=== PATIENT | male | born 1945 | race Caucasian/White ===

== ENCOUNTER 2022-01-08 11:48 | Inpatient (IN) | payer MEDICARE ==
[~2022-01-08] VITALS: Ht 165.1 cm; Wt 77.6 kg
[2022-01-08] MEDS ORDERED: ACETAZOLAMIDE SODIUM 500MG/VIAL IV SCH (12:15)
[2022-01-08] MEDS ORDERED: HYDROCODONE/ACETAMINOPHEN 5/325MG TABLET PO PRN ×2 (12:15→21:00)
[2022-01-08] MEDS ORDERED: CEFAZOLIN 1000MG PREMIX 50 ML IV ONE (12:15)
[2022-01-08 12:46] LABS: BASOPHILS % 0.7 % (0.0-2.0); EOSINOPHILS % 11.1 % (0.0-5.0); HEMATOCRIT. 44.5 % (42.0-52.0); HEMOGLOBIN. 14.8 g/dL (14.0-18.0); LYMPHOCYTES % 16.1 % (20.0-50.0); MEAN CORPUSCULAR HEMOGLOBIN 31.7 pg (28.0-32.0); MEAN CORPUSCULAR VOLUME 95.2 fL (80.0-94.0); MEAN PLATELET VOLUME 8.3 fl (7.4-10.4); MONOCYTES % 6.8 % (2.0-8.0); NEUTROPHILS % 65.3 % (40.0-76.0); PLATELET 198 x1000/uL (130-400); RED BLOOD CELL COUNT 4.67 mill/uL (4.7-6.1); RED CELL DISTRIBUTION WIDTH 13.5 % (11.6-14.6)
[2022-01-08 12:53] LABS: CHLORIDE 110 mEq/L (98-107)
[2022-01-08 12:55] LABS: INR 1.1; PROTHROMBIN TIME 11.6 sec (9.6-11.0)
[2022-01-08 20:00] VITALS: BP 137/78
[2022-01-08 20:30] VITALS: BP 137/78
[2022-01-08] MEDS ORDERED: CEFAZOLIN 1000MG PREMIX 50 ML IV SCH (21:00)
[2022-01-08] MEDS ORDERED: DORZOLAM/TIMOLOL 2.23/0.68% OPHTH DROPS 10ML BOTHEYE SCH (21:00)
[2022-01-08] MEDS ORDERED: LATANOPROST 0.005% OPHTH DROPS 2.5ML BOTHEYE SCH (21:00)
[2022-01-08] MEDS ORDERED: TIMOLOL MALEATE 0.25% OPHTH DROPS 5ML EACHEYE SCH (21:00)
[2022-01-08] MEDS ORDERED: ACETAZOLAMIDE SODIUM 500MG/VIAL IV NR (21:00)
[2022-01-08] MEDS: DORZOLAM/TIMOLOL 2.23/0.68% OPHTH DROPS 10ML RIGHTEYE SCH (22:05)
[2022-01-08] MEDS: PREDNISOLONE ACETATE 1% OPHTH DROPS 5ML RIGHTEYE SCH (23:58)
[2022-01-09] VITALS: BP 130/76
[2022-01-09] MEDS ORDERED: ACETAMINOPHEN 325MG TABLET PO PRN ×2 (01:15)
[2022-01-09] MEDS ORDERED: ONDANSETRON HCL 4MG/2ML INJ IV PRN (01:15)
[2022-01-09] MEDS ORDERED: IPRATROPIUM/ALBUTEROL 0.5-3(2.5)MG/3ML NEB HHN PRN (01:15)
[2022-01-09] MEDS ORDERED: LORAZEPAM 0.5MG TABLET PO PRN (01:15)
[2022-01-09] MEDS ORDERED: HYDROCODONE/ACETAMINOPHEN 5/325MG TABLET PO PRN (01:15)
[2022-01-09] MEDS ORDERED: DOCUSATE SODIUM 100MG CAPSULE PO PRN (01:15)
[2022-01-09] MEDS ORDERED: CLONIDINE 0.1MG TABLET PO PRN (01:15)
[2022-01-09] MEDS ORDERED: NALOXONE HCL 0.4MG/ML VIAL IV PRN (01:30)
[2022-01-09] MEDS: SODIUM CHLORIDE 0.9% 1,000 ML IV SCH ×2 (03:31→13:35)
[2022-01-09 04:00] VITALS: BP_SYST 115; BP_SYST 153; BP_DIAS 69; BP_DIAS 86
[2022-01-09] MEDS: PREDNISOLONE ACETATE 1% OPHTH DROPS 5ML RIGHTEYE SCH (06:44)
[2022-01-09 08:00] VITALS: BP 137/74
[2022-01-09] MEDS ORDERED: LIDOCAINE HCL 1% 50ML VIAL (10MG/ML) ONE (08:02)
[2022-01-09] MEDS ORDERED: PROPOFOL 200MG/20ML VIAL IV ONE (08:02)
[2022-01-09] MEDS ORDERED: ONDANSETRON HCL 4MG/2ML INJ ONE (08:02)
[2022-01-09] MEDS ORDERED: DEXAMETHASONE 4MG/ML 1ML VIAL ONE (08:41)
[2022-01-09] MEDS ORDERED: BALANCED SALT IRRIG SOLN 15ML ONE (08:45)
[2022-01-09] MEDS ORDERED: GENTAMICIN SULF 40MG/ML 2ML VIAL ONE (08:45)
[2022-01-09] MEDS ORDERED: LIDOCAINE HCL/PF 2% 20 MG/ML 10ML VIAL ONE (08:45)
[2022-01-09] MEDS ORDERED: PREDNISOLONE ACETATE 1% OPHTH DROPS 5ML ONE (08:45)
[2022-01-09] MEDS ORDERED: CIPROFLOXACIN 0.3% OPHTH SOLN 2.5ML ONE (08:45)
[2022-01-09] MEDS ORDERED: NEO/POLYMYX B SULF/DEXAMETH OPHTH OINT 3.5GM ONE (08:45)
[2022-01-09] MEDS ORDERED: BUPIVACAINE HCL/PF 0.75% (7.5MG/ML) 10ML ONE (08:45)
[2022-01-09] MEDS ORDERED: HYALURONATE SODIUM 10 MG/ML 0.55ML SYRINGE IO ONE (08:55)
[2022-01-09] MEDS: DORZOLAM/TIMOLOL 2.23/0.68% OPHTH DROPS 10ML RIGHTEYE SCH (09:00)
[2022-01-09] MEDS: CEFAZOLIN 1000MG PREMIX 50 ML IV SCH (09:00)
[2022-01-09] MEDS: THIAMINE HCL 100MG TABLET PO SCH (09:00)
[2022-01-09] MEDS ORDERED: ATROPINE SULFATE 0.4MG/ML VIAL IV PRN (09:15)
[2022-01-09] MEDS ORDERED: FENTANYL CITRATE/PF 50MCG/ML 2ML VIAL IV PRN (09:15)
[2022-01-09 12:00] VITALS: BP 147/87
[2022-01-09 16:00] VITALS: BP 123/70
[2022-01-09 20:00] VITALS: BP 113/59
[2022-01-10] VITALS: BP 111/58
[2022-01-10] MEDS: SODIUM CHLORIDE 0.9% 1,000 ML IV SCH (01:49)
[2022-01-10 04:00] VITALS: BP 102/70
[2022-01-10 08:00] VITALS: BP 113/60
[2022-01-10 08:40] LABS: BASOPHILS % 0.4 % (0.0-2.0); EOSINOPHILS % 8.1 % (0.0-5.0); HEMATOCRIT. 38.5 % (42.0-52.0); HEMOGLOBIN. 12.7 g/dL (14.0-18.0); LYMPHOCYTES % 20.7 % (20.0-50.0); MEAN CORPUSCULAR HEMOGLOBIN 31.5 pg (28.0-32.0); MEAN CORPUSCULAR VOLUME 95.1 fL (80.0-94.0); MONOCYTES % 7.3 % (2.0-8.0); NEUTROPHILS % 63.5 % (40.0-76.0); PLATELET 155 x1000/uL (130-400); RED BLOOD CELL COUNT 4.05 mill/uL (4.7-6.1); RED CELL DISTRIBUTION WIDTH 13.6 % (11.6-14.6)
[2022-01-10] MEDS: THIAMINE HCL 100MG TABLET PO SCH (08:55)
[2022-01-10] MEDS: CEFAZOLIN 1000MG PREMIX 50 ML IV SCH (09:08)
[2022-01-10 09:38] LABS: CHLORIDE 115 mEq/L (98-107)
[2022-01-10 10:03] LABS: HDL CHOLESTEROL 31 mg/dL (40-59); LDL CHOLESTEROL 119 mg/dL (5-100)
[2022-01-10 14:04] VITALS: BP 119/67
== END 2022-01-10 14:40 | disposition home or self-care (01) | DRG 117 ==
LOC: ER 11:48 → 6EST 14:36 → EDBEDREQTM 14:45 → EDBEDREQ 14:45 → ENRESERV 16:38
PROVIDERS: ADMIT Internal Medicine; ATTEND Internal Medicine
PROC: 08123J4 Bypass Right Anterior Chamber to Sclera with Synthetic Substitute, Percutaneous Approach (ICD-10-PCS; principal; 2022-01-09)
DX: H40.89 Other specified glaucoma (principal); I10 Essential (primary) hypertension; H25.11 Age-related nuclear cataract, right eye; Z20.822 Contact with and (suspected) exposure to COVID-19
CPT/HCPCS: 36415; 80048; 80053; 80061; 83036; 84443; 85025; 87426; 93005; 99285; J0690; J1100; J1120; J1580; J2405; J2704; J3490; J7030; C1762; C1783

== ENCOUNTER 2022-08-09 21:36 | Inpatient (IN) | payer BC, MEDICAID ==
[~2022-08-09] VITALS: Ht 160 cm; Wt 72.6 kg
[2022-08-09] MEDS ORDERED: TIMOLOL MALEATE 0.5% OPHTH DROPS 5ML RIGHTEYE STA (23:33)
[2022-08-09] MEDS ORDERED: ACETAZOLAMIDE 500MG ER CAPSULE PO ONE (23:45)
[2022-08-10 00:05] LABS: BASOPHILS % 0.6 % (0.0-2.0); EOSINOPHILS % 13.6 % (0.0-5.0); HEMATOCRIT. 40.5 % (42.0-52.0); HEMOGLOBIN. 13.3 g/dL (14.0-18.0); LYMPHOCYTES % 21.4 % (20.0-50.0); MEAN CORPUSCULAR HEMOGLOBIN 30.7 pg (28.0-32.0); MEAN CORPUSCULAR VOLUME 93.8 fL (80.0-94.0); MEAN PLATELET VOLUME 8.6 fl (7.4-10.4); MONOCYTES % 7.4 % (2.0-8.0); PLATELET 206 x1000/uL (130-400); RED BLOOD CELL COUNT 4.32 mill/uL (4.7-6.1); RED CELL DISTRIBUTION WIDTH 13.5 % (11.6-14.6)
[2022-08-10 00:06] LABS: CHLORIDE 106 mEq/L (98-107)
[2022-08-10 00:11] LABS: INR 1.2; PROTHROMBIN TIME 12.4 sec (9.6-11.0)
[2022-08-10] MEDS ORDERED: BRIMONIDINE 0.2% OPHTH DROPS 5ML RIGHTEYE SCH (06:00)
[2022-08-10] MEDS ORDERED: DORZOLAMIDE 2% OPHTH 10 ML BOTTLE RIGHTEYE SCH (06:00)
[2022-08-10] MEDS ORDERED: LORAZEPAM 0.5MG TABLET PO PRN (07:00)
[2022-08-10] MEDS ORDERED: ONDANSETRON HCL 4MG/2ML INJ IV PRN ×2 (07:00→10:00)
[2022-08-10] MEDS ORDERED: CLONIDINE 0.1MG TABLET PO PRN (07:00)
[2022-08-10] MEDS ORDERED: IPRATROPIUM/ALBUTEROL 0.5-3(2.5)MG/3ML NEB HHN PRN (07:00)
[2022-08-10] MEDS ORDERED: HYDROCODONE/ACETAMINOPHEN 5/325MG TABLET PO PRN (07:00)
[2022-08-10] MEDS ORDERED: ACETAMINOPHEN 325MG TABLET PO PRN ×2 (07:00)
[2022-08-10] MEDS ORDERED: DOCUSATE SODIUM 100MG CAPSULE PO PRN (07:00)
[2022-08-10] MEDS ORDERED: NALOXONE HCL 0.4MG/ML VIAL IV PRN (07:15)
[2022-08-10] MEDS ORDERED: BALANCED SALT IRRIG SOLN 15ML ONE (08:00)
[2022-08-10] MEDS ORDERED: CIPROFLOXACIN 0.3% OPHTH SOLN 2.5ML ONE (08:00)
[2022-08-10] MEDS ORDERED: TETRACAINE 0.5% OPHTH DROPS 4ML ONE (08:00)
[2022-08-10] MEDS ORDERED: NEO/POLYMYX B SULF/DEXAMETH OPHTH OINT 3.5GM ONE (08:00)
[2022-08-10] MEDS ORDERED: PREDNISOLONE ACETATE 1% OPHTH DROPS 5ML ONE (08:00)
[2022-08-10] MEDS ORDERED: ACETYLCHOLINE CHLORIDE INTRAOCULAR SOLUTION 1:100 ELECTROLYTE DILUENT IO ONE (08:00)
[2022-08-10] MEDS ORDERED: PROPOFOL 200MG/20ML VIAL IV ONE (09:35)
[2022-08-10] MEDS ORDERED: MIDAZOLAM HCL 2 MG/2 ML VIAL ONE (09:36)
[2022-08-10] MEDS ORDERED: FENTANYL CITRATE/PF 50MCG/ML 2ML VIAL ONE (09:36)
[2022-08-10] MEDS ORDERED: IBUPROFEN 400MG TABLET PO PRN (09:45)
[2022-08-10] MEDS ORDERED: ZOLPIDEM TARTRATE 5MG TABLET PO NR (09:45)
[2022-08-10] MEDS ORDERED: TRIAMCINOLONE ACETONIDE 40MG/ML 1ML VIAL ONE (09:48)
[2022-08-10] MEDS ORDERED: MEPERIDINE HCL/PF 25MG/ML CPJ IV PRN (10:00)
[2022-08-10] MEDS ORDERED: HYDROMORPHONE HCL/PF 2MG/ML CPJ IV PRN (10:00)
[2022-08-10] MEDS ORDERED: LABETALOL 5MG/ML SYR 20 MG/4 ML SYRINGE IV PRN (10:00)
[2022-08-10 12:00] VITALS: BP 127/63
[2022-08-10 14:42] VITALS: BP 122/70
[2022-08-10 16:00] VITALS: BP 128/69
[2022-08-10 20:00] VITALS: BP 120/67
[2022-08-11] VITALS: BP 142/71
[2022-08-11 04:00] VITALS: BP 131/63
[2022-08-11 08:00] VITALS: BP 141/78
[2022-08-11 13:06] VITALS: BP 128/72
== END 2022-08-11 13:30 | disposition home or self-care (01) | DRG 117 ==
LOC: ER 21:36 → MICUSO 08-10 02:16 → EDBEDREQ 08-10 02:19 → EDBEDREQTM 08-10 02:19 → EDBEDREQDT 08-10 02:19 → 6EST 08-10 08:21
PROVIDERS: ADMIT Internal Medicine; ATTEND Internal Medicine
PROC: 08123Z4 Bypass Right Anterior Chamber to Sclera, Percutaneous Approach (ICD-10-PCS; principal; 2022-08-10)
PROC: 089 Eye, Drainage (ICD-10-PCS; 2022-08-10)
DX: H40.9 Unspecified glaucoma (principal); I10 Essential (primary) hypertension
CPT/HCPCS: 36415; 71045; 80053; 85025; 93005; 99291; J2250; J2704; J3010; J3301